=== PATIENT | female | born 1965 | race Caucasian/White ===

== ENCOUNTER 2020-03-22 12:17 | Emergency (ER) | payer OTHER, SELFPAY ==
--- NOTE | 2020-03-22 12:18 | XR_ITS ---
WS: [id number] Portable AP upright chest, 03/22/2020 Clinical Data: cp Comparison: PA and lateral chest, 10/02/2009. Findings: No nodules, masses or effusions are seen. The heart is normal. The pulmonary vascularity is not increased. No pneumonia or pneumothorax is seen. XR/XR chest 1V portable [id number] Impression: Negative chest.
[2020-03-22 12:23] VITALS: BP 183/78; PULSE 73; RESP 18; O2SAT 100; BMI 57.9
--- NOTE | 2020-03-22 12:37 | ED_ITS ---
HPI - Extremity Problem General: Chief complaint: Extremity Problem,Nontraumatic Stated complaint: chest discomfort Time Seen by Provider: 03/22/20 12:25 Source: patient Mode of arrival: ambulatory Limitations: no limitations History of Present Illness: HPI Narrative: Noticed left shoulder pain earlier today that radiated to her back. She has been having intermittent left shoulder pain for a few weeks now but this morning when the pain radiated to her back she decided to come to the emergency department for evaluation. Her father has a history of MIs. Complaint: extremity pain Onset (ago): hour(s) (3) Pain Consistency: constant Location: left and upper extremity Severity scale (1-10): 6 Quality: sharp Radiation: other (back) Relieving factors: nothing Exacerbating factors: range of motion Associated symptoms: Deny chest pain, fever(s), myalgias, rash or short of breath Review of Systems General: Reports: 10 or more systems reviewed and unremarkable except in HPI and below Const: Denies: fever(s) Eyes: Denies: change in vision or blurry vision ENMT: Denies: throat pain, enlarged tonsils, odynophagia, hoarseness, mouth pain or swelling of lips/tongue Card: Denies: chest pain Resp: Denies: dyspnea, productive cough or non-productive cough GI: Denies: abdominal pain, nausea or vomiting : Denies: flank pain, difficulty voiding, dysuria, urinary frequency, urinary urgency or urinary hesitancy Musc: Denies: neck pain, back pain or extremity swelling Skin/Breast: Denies: rash Neuro: Denies: headache(s), numbness in extremities or weakness in extremities Endo: Denies: polyuria, polydipsia or tired all the time Physical Exam Const: COMMON NORMALS: no acute distress, patient oriented x3, no limitations, healthy appearing, alert and well nourished NUTRITIONAL APPEARANCE: obese HENMT: COMMON NORMALS: normocephalic, atraumatic and moist oral mucous membranes HEAD & SCALP: normocephalic and atraumatic Neck/C-Spine: COMMON NORMALS: no meningeal signs and no JVD Resp: COMMON NORMALS: normal respiratory effort, No retractions, No use of accessory muscles, clear to auscultation bilaterally and percussion normal AUSCULTATION: clear to auscultation bilaterally PERCUSSION: percussion normal Cardio: COMMON NORMALS: no JVD, regular rate, regular rhythm, S1 normal heart sound present, S2 normal heart sound present, No gallops present (Cardio), No clicks present (Cardio), No murmurs present (Cardio), No rub (Cardio) and Peripheral pulses 2+ throughout RATE: regular rate RHYTHM: regular rhythm HEART SOUNDS: S1 normal heart sound present and S2 normal heart sound present PERIPHERAL PULSES: Peripheral pulses 2+ throughout GI: COMMON NORMALS: Normal to inspection, nondistended, normoactive bowel sounds present, Soft to palpation, non-tender, No hepatosplenomegaly present, no masses and no bruits PALPATION: Yes Soft to palpation and Yes No hepatosplenomegaly present Extremity: COMMON NORMALS: normal to inspection, full ROM, capillary refill normal, no calf tenderness and no pedal edema LEFT UPPER EXTREMITY: Yes shoulder joint Left shoulder joint: Yes palpation (Tenderness in the posterior shoulder along the infraspinatus muscle) and Yes ROM (Full range of motion) Neuro: COMMON NORMALS: patient oriented x3 SENSORIUM/ORIENTATION: Yes alert MENINGEAL SIGNS: Yes no meningeal signs Course Reevaluation(s): Reevaluation #1: Discussed her lab findings with her. Baseline troponin less than 6. Heart score shows she has a low risk of an adv erse cardiac event in the next 6 weeks so she will be discharged home to follow- up with her primary care provider I think her pain may be more musculoskeletal than cardiac. She voiced understanding and is in agreement with the plan. Time: 14:30 Vital Signs: Vital signs: Vital Signs Pulse Rate 79 03/22/20 13:58 Respiratory Rate 12 03/22/20 13:58 Blood Pressure 129/78 03/22/20 13:58 Pulse Oximetry 99 03/22/20 13:58 MDM - Extremity (Nontraumatic) MDM Narrative: Medical decision making narrative: 54-year-old female patient who presents with left shoulder pain that radiated to her back today. She was worried about a cardiac cause of the pain so she came in for evaluation. She has also had this pain intermittently for a few weeks. Evaluation in the ED was unremarkable including a baseline troponin of less than 6. Heart score is 3 (1 for age and 2 for risk factors). She is discharged home with no new orders but she did have some tenderness on exam of her shoulder with pain when she reaches behind her back. She had a fall into a door a few months ago and has had left shoulder pain since then that has progressively worsened. She did not remember that until I started asking her questions. I do think she may have some rotator cuff issues and she is advised to follow-up with her primary care provider for an MRI. Since her evaluation here was unremarkable and she has a low heart score she is discharged home with no new orders. Medical Records: Attestation: I reviewed the patient's medical records. Lab Data: Attestation: I reviewed the patient's lab results. Labs: Lab Results 03/22/20 03/22/20 03/22/20 Range/Units 12:37 12:37 12:37 WBC 6.8 (4.0-10.0) 10^3/ uL RBC 4.50 (4.1-5.3) 10^6/u L Hgb 13.3 (11.5-15.3) g/dL Hct 42.1 (37.0-47.0) % MCV 93.6 (81-99) fL MCH 29.6 (28.0-34.0) pg MCHC 31.6 (30.0-36.0) g/dL RDW 12.9 (12.1-15.1) % Plt Count 173 (130-400) 10^3/c mm MPV 9.6 (7.4-10.4) fL Neut % (Auto) 57.9 % Lymph % (Auto) 25.1 % [place] % (Auto) 8.9 % Eos % (Auto) 7.4 % Baso % (Auto) 0.4 % Neut # (Auto) 3.91 (1.8-7.7) 10^3/u L Lymph # (Auto) 1.7 (0.8-4.8) 10^3/u L [place] # (Auto) 0.6 (0.2-0.9) 10^3/u L Eos # (Auto) 0.5 (0.0-0.8) 10^3/u L Baso # (Auto) 0.0 (0.0-0.1) 10^3/u L Nucleated RBC % (a uto) 0 % Nucleated RBCs # 0.0 /100WBC Sodium 140 (136-145) mmol/L Potassium 4.5 (3.5-5.1) mmol/L Chloride 105 (98-107) mmol/L Carbon Dioxide 28 (22-29) mmol/L Anion Gap 11.5 (5-19) BUN 18 (6-20) mg/dL Creatinine 0.7 (0.5-0.9) mg/dL GFR Calculation 87.2 L (90-130) mL/min Glucose 110 (65-115) mg/dL Calculated Osmolal ity 287 (285-295) mOsm/k g Calcium 9.2 (8.5-10.5) mg/dL Total Bilirubin 0.5 (0.15-1.2) mg/dL AST 22 (0-32) U/L ALT 25 (0-33) U/L Alkaline Phosphata se 77 (35-105) IU/L Troponin T Baselin e 6 (0-10) ng/L Total Protein 7.2 (6.6-8.7) g/dL Albumin 4.1 (3.5-5.2) g/dL Globulin 3.1 (1.3-4.6) g/dL Lipase 28 (13-60) U/L Imaging Data^: CXR: Radiologist's impression: [place] [address] XRay Report Signed Patient: Marylou Mccormack #: [id number] : 1965Acct#:[id number] Age/Sex: 54 / FADM Date: 03/22/20 [facility] Attending Dr: Ordering Provider/Ordering MD: Lucinda Silvestre MD Date of Service: 03/22/20 Procedure(s): XR chest 1V portable [id number] Accession Number(s): [id number] Report Number: [id number] WS: [id number] Portable AP upright chest, 03/22/2020 Clinical Data: cp Comparison: PA and lateral chest, 10/02/2009. Findings: No nodules, masses or effusions are seen. The heart is normal. The pulmonary vascularity is not increased. No pneumonia or pneumothorax is seen. XR/XR chest 1V portable [id number] Impression: Negative chest. Dictated By:Saadia Diaz MD Signed By:Saadia Diaz MDSigned Date/Time:03/22/202 DD/ 1311 EKG Data^: EKG 1: Attestation: I personally reviewed and interpreted this EKG as follows: EKG interpretation date: 03/22/20 EKG interpretation time: 12:25 Prior EKG tracings: not available for review Interpretation: Normal sinus rhythm. Heart rate 73 bpm. Normal axis. No ST changes. No STEMI EKG 2: Attestation: I personally reviewed and interpreted this EKG as follows: EKG interpretation date: 03/22/20 EKG interpretation time: 14:19 Prior EKG tracings: available for review Interpretation: Normal sinus rhythm. Heart rate [address] changes. Normal axis. Unchanged from earlier. Discharge Plan Discharge Patient Disposition: Home Clinical Impression: Acute pain of left shoulder Condition: Stable Prescriptions: Continued meloxicam 15 mg tablet 15 mg PO DAILY RF: 0 levothyroxine 25 mcg tablet 25 mcg PO DAILY RF: 0 Calcium 500 500 mg calcium (1,250 mg) Tablet 500 mg PO DAILY RF: 0 pantoprazole 40 mg tablet,delayed release (DR/EC) 40 mg PO DAILY RF: 0 nortriptyline 10 mg capsule 10 mg PO BEDTIME RF: 0 montelukast 10 mg tablet 10 mg PO DAILY RF: 0 zinc 50 mg Tablet 50 mg PO DAILY RF: 0 magnesium 250 mg Tablet 250 mg PO DAILY RF: 0 epinephrine 0.3 mg/0.3 mL auto-injector 0.3 mg IM PRN PRN (Reason: Allergic Reaction) RF: 0 timolol maleate 0.5 % drops 1 drp ophthalmic (eye) BID RF: 0 Claritin 10 mg Tablet 10 mg PO DAILY RF: 0 biotin 1 mg Tablet 1 mg PO DAILY RF: 0 olopatadine 0.6 % spray,non-aerosol 0.6 % INTRANASAL BID RF: 0 Lumigan 0.01 % drops 1 drp ophthalmic (eye) BEDTIME RF: 0 Discharge Orders: Discharge Order (Routine); Ordered 03/22/20 Ordered By: Angel Fields Referrals: Patti Hurst MD [Primary Care Provider] - 1-3 days Discharge Diet: Usual diet Discharge Activity: Increase activity as tolerated Patient Instructions: Shoulder Sprain (ED) Activity Restrictions/Additional Instructions: Return for any new or worsening symptoms. Follow-up with your primary care provider within 2 days for further evaluation and management. You might need an MRI of your shoulder for further evaluation of your rotator cuff muscles. Discharge Date/Time: 03/22/20 14:53 Coding Level of Care Code ED Food And Nutrition Teacher for Susu Fwd Exam Detailed
[2020-03-22 12:43] LABS: Basophils % 0.4 %; Eosinophils # 0.5 10^3/uL (0.0-0.8); Eosinophils % 7.4 %; Hematocrit 42.1 % (37.0-47.0); Hemoglobin 13.3 g/dL (11.5-15.3); Lymphocytes # 1.7 10^3/uL (0.8-4.8); Lymphocytes % 25.1 %; Mean Corpuscular HGB Conc 31.6 g/dL (30.0-36.0); Mean Corpuscular Hemoglobin 29.6 pg (28.0-34.0); Mean Corpuscular Volume 93.6 fL (81-99); Mean Platelet Volume 9.6 fL (7.4-10.4); Monocytes # 0.6 10^3/uL (0.2-0.9); Monocytes % 8.9 %; Neutrophils # 3.91 10^3/uL (1.8-7.7); Neutrophils % 57.9 %; Nucleated Red Blood Cells % 0 %; Platelet Count 173 10^3/cmm (130-400); Red Cell Distribution Width 12.9 % (12.1-15.1); White Blood Count 6.8 10^3/uL (4.0-10.0)
[2020-03-22 12:59] VITALS: BP 159/65; PULSE 69; PULSE 71; RESP 16; O2SAT 100
[2020-03-22 13:05] LABS: Alanine Aminotransferase 25 U/L (0-33); Albumin Level 4.1 g/dL (3.5-5.2); Alkaline Phosphatase 77 IU/L (35-105); Anion Gap 11.5 (5-19); Aspartate Amino Transferase 22 U/L (0-32); Blood Urea Nitrogen 18 mg/dL (6-20); Calcium 9.2 mg/dL (8.5-10.5); Carbon Dioxide 28 mmol/L (22-29); Chloride 105 mmol/L (98-107); Globulin 3.1 g/dL (1.3-4.6); Glomerular Filtration Rate 87.2 mL/min (90-130); Glucose 110 mg/dL (65-115); Lipase 28 U/L (13-60); Osmolality Calculated 287 mOsm/kg (285-295); Potassium 4.5 mmol/L (3.5-5.1); Sodium 140 mmol/L (136-145); Total Bilirubin 0.5 mg/dL (0.15-1.2); Total Protein 7.2 g/dL (6.6-8.7)
[2020-03-22 13:06] LABS: Troponin(5th) Baseline 6 ng/L (0-10)
[2020-03-22 13:58] VITALS: BP 129/78; PULSE 79; RESP 12; O2SAT 99
--- NOTE | 2020-03-22 14:18 | ECG_ITS ---
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 Measurements Intervals [place] Rate: 69 P: -25 [place]: 134 QRS: 11 QRSD: 89 T: 34 QT: 384 QTc: 413 Interpretive Statements SINUS RHYTHM LOW QRS VOLTAGE IN PRECORDIAL LEADS [QRS DEFLECTION < 1.0 mV IN CHEST LEADS] SEPTAL MYOCARDIAL INFARCTION , OF INDETERMINATE AGE [40+ ms Q WAVE IN V1/V2] No previous ECG available for comparison Electronically Signed On 03-22-2020 20:43:44 CDT by Constance Ahumada M.D. [id number]
== END 2020-03-22 14:53 | disposition home or self-care (01) ==
PROVIDERS: Emergency Medicine; Emergency Provider Family Medicine; PCP Family Medicine
DX: M25.512 Pain in left shoulder (principal)
CPT/HCPCS: 12345; 71045; 80053; 83690; 84484; 85025; 93005; 99282; 99284

== ENCOUNTER → 2020-05-03 15:50 | Outpatient (BNVA) | payer OTHER, SELFPAY | PROVIDERS: PCP Family Medicine; Referring Provider Family Medicine; Visit Provider Dermatology | DX: L70.9 Acne, unspecified (principal); L82.1 Other seborrheic keratosis; D18.01 Hemangioma of skin and subcutaneous tissue; L72.0 Epidermal cyst | CPT/HCPCS: 99203; 99204 ==

== ENCOUNTER 2020-07-16 11:36 | Outpatient (CLI) | payer OTHER, SELFPAY ==
--- NOTE | 2020-07-16 11:40 | MM_ITS ---
WS: [id number] SCREENING DIGITAL MAMMOGRAM WITH CAD HISTORY: SCREENING COMPARISON: 05/18/2019, 07/14/2018 Bilateral CC and MLO views submitted. Computer aided detection analyzed. Breast composition: The breasts are almost entirely fatty. No suspicious masses, microcalcifications or architectural distortion. Benign intramammary lymph nodes. MM/[id number] IMPRESSION: BI-RADS: 2-Benign FOLLOW UP: 1 Year Follow-up
== END 2020-07-16 11:37 | disposition home or self-care (01) ==
LOC: RADSHAW 11:39
PROVIDERS: PCP Family Medicine; Visit Provider Family Medicine
DX: Z12.31 Encounter for screening mammogram for malignant neoplasm of breast (principal)
CPT/HCPCS: 77067

== ENCOUNTER → 2021-02-26 12:52 | Outpatient (BNVA) | payer BC, SELFPAY | PROVIDERS: PCP Family Medicine; Visit Provider Nurse Practitioner Family | DX: Z20.822 Contact with and (suspected) exposure to COVID-19 (principal); J06.9 Acute upper respiratory infection, unspecified | CPT/HCPCS: 87635 ==

== ENCOUNTER → 2021-03-13 08:21 | Outpatient (BNVA) | payer BC, SELFPAY | PROVIDERS: PCP Family Medicine; Visit Provider Nurse Practitioner Family | DX: Z20.822 Contact with and (suspected) exposure to COVID-19 (principal) | CPT/HCPCS: 87635 ==

== ENCOUNTER 2021-07-10 09:03 | Outpatient (CLI) | payer BC, SELFPAY ==
--- NOTE | 2021-07-10 09:09 | MM_ITS ---
WS: [id number] BILATERAL SCREENING DIGITAL MAMMOGRAM WITH CAD HISTORY: SCREENING COMPARISON: 07/16/2020 and 07/14/2018 Bilateral CC and MLO views submitted. Computer aided detection analyzed. Breast composition: There are scattered areas of fibroglandular density. No suspicious masses, microc alcifications or architectural distortion. Benign calcifications and lymph nodes within each breast. MM/[place] [id number] IMPRESSION: BI-RADS: 2-Benign FOLLOW UP: 1 Year Follow-up
== END 2021-07-10 09:04 | disposition home or self-care (01) ==
LOC: RADSHAW 09:07
PROVIDERS: PCP Family Medicine; Visit Provider Family Medicine
DX: Z12.31 Encounter for screening mammogram for malignant neoplasm of breast (principal)
CPT/HCPCS: 77067

== ENCOUNTER → 2021-09-27 13:28 | Outpatient (BNVA) | payer BC, SELFPAY | PROVIDERS: PCP Family Medicine; Visit Provider Surgery | DX: Z20.822 Contact with and (suspected) exposure to COVID-19 (principal) | CPT/HCPCS: 87635 ==

== ENCOUNTER 2021-10-02 08:42 | Day surgery (SDC) | payer BC, SELFPAY ==
[2021-09-30 12:53] VITALS: BMI 60.0
--- NOTE | 2021-10-02 09:07 | ANES.PREANE2 ---
Pre-Anesthetic Assessment Height/Weight: Height 1.63 m Weight 158.757 kg Preop Diagnosis: diagnostic Operation Date: 10/02/21 10:30 Proposed Procedures s Colonoscopy 92690 Z86.010 K64.9(Not Applicable) - Tin Carpenter MD p EGD possible balloon Dilation(Not Applicable) - Tin Carpenter MD Familial anesthetic complications: None Was Beta Oscar taken within 24 hours: N/A Was Clonidine taken within 24 hours: N/A Last intake: > 8 hrs Social No alcohol and No tobacco Airway Mallampati: Class II Dentition: other (missing 1 tooth) Pulmonary reactive airway - but no asthma diagnosis - took her inhaler this morning GI Gastroesophageal Reflux Disease Metabolic Morbid Obesity and Thyroid Disease Anesthetic Plan ASA status: 3 Risk of > 500 ml blood loss (7ml/kg in children): No Other Pertinent Information glaucoma Medications/Allergies Home Medications Medication Instructions Recorded Confirmed Last Taken Type bimatoprost 0.01 % eye drops 1 drp OPHTHALMIC (EYE) BEDTIME 03/22/20 09/30/21 03/21/20 History (Lumigan) biotin 1 mg tablet 1 mg PO DAILY 03/22/20 09/30/21 03/22/20 History calcium carbonate 500 mg calcium 500 mg PO DAILY 03/22/20 09/30/21 03/22/20 History (1,250 mg) tablet (Calcium 500) levothyroxine 25 mcg tablet 25 mcg PO DAILY 03/22/20 09/30/21 03/22/20 History loratadine 10 mg tablet (Claritin) 10 mg PO DAILY 03/22/20 09/30/21 03/22/20 History magnesium 250 mg tablet 250 mg PO DAILY 03/22/20 09/30/21 03/22/20 History meloxicam 15 mg tablet 15 mg PO DAILY 03/22/20 09/30/21 03/22/20 History montelukast 10 mg tablet 10 mg PO DAILY 03/22/20 09/30/21 03/21/20 History nortriptyline 10 mg capsule 10 mg PO BEDTIME 03/22/20 09/30/21 03/21/20 History olopatadine 0.6 % nasal spray 0.6 % INTRANASAL BID 03/22/20 09/30/21 03/22/20 History pantoprazole 40 mg tablet,delayed 40 mg PO DAILY 08/09/30/21 03/22/20 History release timolol maleate 0.5 % eye drops 1 drp OPHTHALMIC (EYE) BID 03/22/20 09/30/21 03/22/20 History zinc 50 mg tablet 50 mg PO DAILY 03/22/20 09/30/21 03/22/20 History budesonide 0.5 mg/2 mL suspension 0.5 mg INHALATION DAILY 03/12/21 09/30/21 Unknown History for nebulization fluticasone propionate 110 2 puff INHALATION BID PRN g 03/12/21 09/30/21 Unknown History mcg/actuation HFA aerosol inhaler (Flovent HFA) glucosamine sulfate 500 mg tablet 500 mg PO DAILY 09/03/21 09/30/21 Unknown History (Glucosamine) Allergies Allergy/AdvReac Type Severity Reaction Status Date / Time codeine Allergy ADR-Irritab Verified 09/03/21 08:28 le levofloxacin [From Levaquin] Allergy ADR-Muscle Verified 09/03/21 08:28 Pain PFSH Anesthesia Medical History (Updated 09/03/21 @ 08:47 by Tin Carpenter MD) Arthritis GERD (gastroesophageal reflux disease) Glaucoma History of colon polyps Hypothyroidism Surgical History (Updated 09/03/21 @ 08:45 by Tin Carpenter MD) H/O esophagogastroduodenoscopy H/O knee surgery Left H/O sinus surgery radical turbinectomy History of carpal tunnel release Left History of colonoscopy History of eye surgery History of tonsillectomy Family History Other CAD (coronary artery disease) CLL (chronic lymphocytic leukemia) Cancer Diabetes Social History (Updated 03/12/21 @ 10:57 by Elvi Alexander NP) Smoking and tobacco status: never smoked Alcohol intake: never History of recent travel: No Data Anesthesia Cardiac Studies: No Data to Display
[2021-10-02 09:40] VITALS: BP 179/90; PULSE 81; RESP 18; TEMP 36.3
[2021-10-02] MEDS: sodium chloride 0.9% 1,000 ML 30 ML IV (09:47)
--- NOTE | 2021-10-02 10:06 | P.HP_ITS ---
Same Day Surgery H&P Indication for Procedure/HPI DATE OF PROCEDURE: October 02, 2021 CHIEF COMPLAINT/INDICATIONFOR SURGICAL PROCEDURE: screening PREOP DIAGNOSIS: diagnostic PLANNED PROCEDURE: Operation Date: 10/02/21 10:30 Proposed Procedures s Colonoscopy 85787 Z86.010 K64.9(Not Applicable) - Tin Carpenter MD p EGD possible balloon Dilation(Not Applicable) - Tin Carpenter MD Medications/Allergies* Home Medications Medication Instructions Recorded Confirmed Type bimatoprost 0.01 % eye drops 1 drp OPHTHALMIC (EYE) BEDTIME 03/22/20 09/30/21 History (Lumigan) biotin 1 mg tablet 1 mg PO DAILY 03/22/20 09/30/21 History calcium carbonate 500 mg calcium 500 mg PO DAILY 03/22/20 09/30/21 History (1,250 mg) tablet (Calcium 500) levothyroxine 25 mcg tablet 25 mcg PO DAILY 03/22/20 09/30/21 History loratadine 10 mg tablet (Claritin) 10 mg PO DAILY 03/22/20 09/30/21 History magnesium 250 mg tablet 250 mg PO DAILY 03/22/20 09/30/21 History meloxicam 15 mg tablet 15 mg PO DAILY 03/22/20 09/30/21 History montelukast 10 mg tablet 10 mg PO DAILY 03/22/20 09/30/21 History nortriptyline 10 mg capsule 10 mg PO BEDTIME 03/22/20 09/30/21 History olopatadine 0.6 % nasal spray 0.6 % INTRANASAL BID 03/22/20 09/30/21 History pantoprazole 40 mg tablet,delayed 40 mg PO DAILY 03/22/20 09/30/21 History release timolol maleate 0.5 % eye drops 1 drp OPHTHALMIC (EYE) BID 03/22/20 09/30/21 History zinc 50 mg tablet 50 mg PO DAILY 03/22/20 09/30/21 History budesonide 0.5 mg/2 mL suspension 0.5 mg IRRIGATION DAILY 03/12/21 10/02/21 History for nebulization fluticasone propionate 110 2 puff INHALATION BID PRN g 03/12/21 09/30/21 Hi story mcg/actuation HFA aerosol inhaler (Flovent HFA) glucosamine sulfate 500 mg tablet 500 mg PO DAILY 09/03/21 09/30/21 History (Glucosamine) Allergies/Adverse Reactions Allergy/AdvReac Type Severity Reaction Status Date / Time codeine Allergy ADR-Irritab Verified 09/03/21 08:28 le levofloxacin [From Levaquin] Allergy ADR-Muscle Verified 09/03/21 08:28 Pain Current Medications: Generic Name Dose Route Start Last Admin Trade Name Freq PRN Reason Stop Dose Admin Sodium Chloride 1,000 mls @ 30 mls/hr 10/02/21 09:00 10/02/21 09:47 Sodium Chloride 0.9% IV 10/03/21 08:59 30 mls/hr .Q24H AIDEN Administration Pertinent History/Comorbid Conditions* Medical History (Updated 09/03/21 @ 08:47 by Tin Carpenter MD) Arthritis GERD (gastroesophageal reflux disease) Glaucoma History of colon polyps Hypothyroidism Surgical History (Updated 09/03/21 @ 08:45 by Tin Carpenter MD) H/O esophagogastroduodenoscopy H/O knee surgery Left H/O sinus surgery radical turbinectomy History of carpal tunnel release Left History of colonoscopy History of eye surgery History of tonsillectomy Family History (Updated 05/03/20 @ 16:15 by Claudia Edgar LPN) Diabetes CAD (coronary artery disease) CLL (chronic lymphocytic leukemia) Cancer Social History Smoking and tobacco status: never smoked Alcohol intake: never History of recent travel: No Pertinent Exam Findings alert, oriented x 3 and regular rate & rhythm Recommendations Surgery/Procedure today Coding Level of Care Code Acute 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
[2021-10-02 10:57] VITALS: BP 170/100; PULSE 82; RESP 18; TEMP 36.8; O2SAT 97
[2021-10-02 11:10] VITALS: BP 158/63; PULSE 77; RESP 18; TEMP 36.7; O2SAT 97
--- NOTE | 2021-10-02 13:00 | ANE.PACU2 ---
Inpatient post-anesthesia follow up: Airway intact: Yes Vital signs: Temperature 98.1 F Pulse Rate 77 Respiratory Rate 18 Blood Pressure 158/63 Pulse Oximetry 97 Oxygen Delivery Me thod Room Air Oxygen Flow Rate Fraction of Inspir ed Oxygen Hydration adequate: Yes Nausea and vomiting: No Pain level: 2 Mental status: Baseline
== END 2021-10-02 11:24 | disposition home or self-care (01) ==
PROVIDERS: PCP Family Medicine; Visit Provider Surgery
PROC: 0DJD8ZZ Inspection of Lower Intestinal Tract, Via Natural or Artificial Opening Endoscopic (ICD-10-PCS; CPT 45378; principal; 2021-10-02 10:30)
DX: Z12.11 Encounter for screening for malignant neoplasm of colon (principal); Z86.010 Personal history of colon polyps; K21.9 Gastro-esophageal reflux disease without esophagitis; K64.8 Other hemorrhoids; D12.2 Benign neoplasm of ascending colon; E03.9 Hypothyroidism, unspecified; M19.90 Unspecified osteoarthritis, unspecified site; E66.01 Morbid (severe) obesity due to excess calories; Z68.44 Body mass index [BMI] 60.0-69.9, adult; Z82.49 Family history of ischemic heart disease and other diseases of the circulatory system; Z83.3 Family history of diabetes mellitus
CPT/HCPCS: 43239; 45380; 88305; J2704; J7030

== ENCOUNTER 2022-05-05 09:51 | Outpatient (CLI) | payer BC, SELFPAY ==
--- NOTE | 2022-05-05 | ECG_ITS ---
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 Interpretive Statements NAME OF STUDY: EXERCISE SESTAMIBI STRESS TEST INDICATION: [Chest Pressure; Palpitations] EXERCISE DATA: The patient was exercised by Félix protocol. Baseline heart rate was 71 beats per minute. Baseline blood pressure was 156/94 millimeters of mercury. Target heart rate was 139 beats per minute. Maximum heart rate achieved was 147, which was 105% of the target heart rate. Maximum blood pressure was 219/101 millimeters of mercury. Total exercise time was 3 minutes 31 seconds. Maximum METs achieved was 4.9.The reason for ending the test was maximal effot achieved. ELECTROCARDIOGRAM: BASELINE: Showed sinus rhythm, normal axis, no significant ST-T changes at the baseline noted. [] EXERCISE: At the peak exercise level, [] No significant ST-T changes suggestive of ischemia noted. [] RECOVERY: During the recovery period, heart rate dropped appropriately. No significant ST-T changes in the recovery suggestive of ischemia noted. [] CONCLUSION: 1. Exercise capacity poor 2. Heart rate response was appropriate 3. Blood pressure response was hypertensive 4. Symptoms not suggestive of ischemia. 5. Electrocardiogram portion of the stress test was not suggestive of ischemia. 6. Nuclear scan will be documented separately. Electronically Signed On 05-19-2022 9:53:32 CDT by Roderick Campos M.D. [id number]
[2022-05-05 10:44] VITALS: BMI 60.0
--- NOTE | 2022-05-05 10:46 | NMCV_ITS ---
NM daniella perf SPECT r/s* [id number] Marylou Mccormack Age: 56 Gender: F : 1965 Exam Date: 05/05/2022 11:07 Ordering Phys: Patti Hurst MD Technologist: PARI Baig Exam Location: [facility] Indications: CHEST PAIN STRESS TEST Please see separate stress test report in [facility] for full findings IMAGE PROTOCOL Rest/Stress 1 Exercise Day Radiopharmaceutical Dose (mCi) Administration Site Administered by Rest: Tc-99m 10.7 IV PARI Jordan Sestamibi Stress:Tc-99m 32.9 IV PARI Jordan Sestamibi Rest: 05-May-2022 60 Discovery 630 Stress: 05-May-2022 30 Discovery 630 Radiopharmaceutical was injected at 85 % maximum heart rate. Images obtained in supine and prone position. SPECT RESULTS Technical Quality: Excellent Raw Data Analysis: Breast attenuation Image Corrections: No attenuation or motion correction applied Summed Stress Score: 0 Summed Rest Score: 1 Summed Difference Score: 0 PERFUSION FINDINGS SPECT images demonstrate homogeneous tracer distribution throughout the myocardium. FUNCTIONAL RESULTS (calculated via Gated SPECT) Stress Image LV EF (%): 78 Stress EDV (mL):76 TID: 0.77 Stress ESV (mL):17 FUNCTIONAL FINDINGS: There is normal left ventricular systolic function. IMPRESSIONS 1. Normal myocardial perfusion imaging with no evidence of ischemia. 2. LV systolic function is normal Roderick Campos MD (Electronically Signed) Final Date: 05 May 2022 13:50 S
[2022-05-05 12:09] VITALS: BP 145/81; PULSE 89
== END 2022-05-05 09:52 | disposition home or self-care (01) ==
LOC: CDL 09:54
PROVIDERS: PCP Family Medicine; Visit Provider Family Medicine
DX: R07.89 Other chest pain (principal)
CPT/HCPCS: 78452; 93017; A9500

== ENCOUNTER 2022-05-23 07:20 | Outpatient (CLI) | payer BC, SELFPAY ==
--- NOTE | 2022-05-23 07:35 | MM_ITS ---
WS: [id number] BILATERAL SCREENING DIGITAL TOMOSYNTHESIS MAMMOGRAM WITH CAD HISTORY: SCREEN COMPARISON: 07/10/2021 and 07/16/2020 Bilateral CC and MLO views with tomosynthesis and synthetic mammography submitted. Computer aided det ection analyzed. Breast composition: There are scattered areas of fibroglandular density. No suspicious masses, microc alcifications or architectural distortion. Scattered calcifications. No mass. MM/[place] [id number] IMPRESSION: BI-RADS: 2-Benign FOLLOW UP: 1 Year Follow-up
== END 2022-05-23 07:21 | disposition home or self-care (01) ==
LOC: RAD 07:21
PROVIDERS: PCP Family Medicine; Visit Provider Family Medicine
DX: Z12.31 Encounter for screening mammogram for malignant neoplasm of breast (principal)
CPT/HCPCS: 77063; 77067

== ENCOUNTER 2022-10-09 08:02 | Outpatient (CLI) | payer BC, SELFPAY ==
--- NOTE | 2022-10-09 | CT_ITS ---
WS: [id number] CT TEMPORAL BONES TECHNIQUE: Noncontrast CT of the temporal bones with coronal and sagittal reformatted images. CLINICAL INFORMATION: OTALGIA COMPARISON: None. DLP: 423.[address] scans at [facility] use at least one of these dose optimization techniques: automated e xposure control; mA and/or kV adjustment per patient size (includes targeted exams where dose is matc hed to clinical indication); or iterative reconstruction. FINDINGS: Mastoid air cells are well aerated bilaterally. Normal posterior nasopharynx and parapharyn geal fat. Partial opacification of the RIGHT greater than LEFT frontal sinus and frontal ethmoidal re cesses. Partial opacification ethmoid air cells. RIGHT: Normal external auditory canal. Ossicles are normal in appearance. Middle ear is well aerated. Normal tegmen tympani. Semicircular canals and cochlea are normal in appearance. Prussak's space is normal. Normal inner ear structures. Normal vestibular aqueduct. Facial nerve recess is normal. LEFT: Normal external auditory canal. Ossicles are normal in appearance. Middle ear is well aerated. Normal tegmen tympani. Semicircular canals and cochlea are normal in appearance. Prussak's space is normal. Normal inner ear structures. Normal vestibular aqueduct. Facial nerve recess is normal. CT/CT temporal bone wo con* [id number] IMPRESSION: 1. Mastoid air cells well aerated bilaterally. 2. Normal ossicles bilaterally structures. 3. No evidence of aberrant LEFT ICA. 4. Partially visualized paranasal sinuses demonstrate partial opacification et hmoid air cells with opacification the RIGHT greater than LEFT frontal ethmoida l recesses and RIGHT greater than LEFT frontal sinus and nasal thickening.
== END 2022-10-09 08:03 | disposition home or self-care (01) ==
LOC: RAD 08:04
PROVIDERS: PCP Family Medicine; Visit Provider Specialist
DX: H92.09 Otalgia, unspecified ear (principal)
CPT/HCPCS: 70480

== ENCOUNTER 2023-02-05 19:34 | Emergency (ER) | payer BC, SELFPAY ==
--- NOTE | 2023-02-05 19:35 | XRR_ITS ---
PROCEDURE INFORMATION: Exam: XR Chest Exam date and time: 02/05/2023 7:43 PM Age: 57 years old Clinical indication: Other: Palpitations TECHNIQUE: Imaging protocol: Radiologic exam of the chest. Views: 1 view. COMPARISON: CR XR chest 1V portable [id number] 03/22/2020 12:36 PM FINDINGS: Lungs: Unremarkable. No consolidation. Pleural spaces: Unremarkable. No pleural effusion. No pneumothorax. Heart/Mediastinum: Unremarkable. No cardiomegaly. Bones/joints: Unremarkable. XR/XR chest 1V portable [id number] IMPRESSION: No acute findings.
--- NOTE | 2023-02-05 19:36 | ECG_ITS ---
[facility] Test Date: 2023-02-05 Pat Name: Marylou Mccormack Department: Room: Gender: Female Crnp: : 1965 Requested By: Lucinda Silvestre Order Number: [id number] Lucille MD: Constance Ahumada M.D. Measurements Intervals Mcnary Rate: 135 P: 47 VA: 166 QRS: 16 QRSD: 81 T: 47 QT: 291 QTc: 437 Interpretive Statements SINUS TACHYCARDIA WITH FREQUENT SUPRAVENTRICULAR PREMATURE COMPLEXES LOW QRS VOLTAGE IN PRECORDIAL LEADS [QRS DEFLECTION < 1.0 mV IN CHEST LEADS] POSSIBLE ANTERIOR MYOCARDIAL INFARCTION , PROBABLY OLD [30 ms Q WAVE IN V3/V4, OR R < 0.2 mV IN V4] ABNORMAL RHYTHM ECG Compared to ECG 03/22/2020 14:19:39 Sinus rhythm no longer present Myocardial infarct finding still present Electronically Signed On 02-06-2023 11:31:45 CDT by Constance Ahumada M.D. [id number]
[2023-02-05 19:38] VITALS: BP 156/74; PULSE 138; RESP 16; O2SAT 98; BMI 58.3
--- NOTE | 2023-02-05 19:46 | W.ED.ARRPALP ---
HPI - Arrhythmia/Palpitations General: Chief Complaint: Arrhythmia/Palpitations Stated Complaint: fast heart rate Time Seen by Provider: 02/05/23 19:35 Source: patient Mode of arrival: ambulatory Limitations: no limitations History of Present Illness: 57-year-old female states she has been having episodes of palpitations the last couple days she states it seems to be associated with eating at times states she is feeling palpitations this evening she is tachycardic here she denies any pain she denies any shortness of breath denies any recent illness or fever no history of A-fib or arrhythmias Associated symptoms: Deny nausea or vomiting Review of Systems Const: Denies: fever(s) or chills Eyes: Denies: eye discomfort ENMT: Denies: throat pain or dental pain Card: Reports: palpitations and irregular heart rhythm; Denies: chest pain Resp: Denies: dyspnea GI: Denies: abdominal pain, nausea, vomiting or diarrhea Musc: Denies: neck pain or back pain Skin/Breast: Denies: rash Neuro: Denies: headache(s) PFSH ED PFSH: Medical History Arthritis GERD (gastroesophageal reflux disease) Glaucoma Helicobacter pylori (H. pylori) Helicobacter pylori gastritis History of colon polyps Hypothyroidism Surgical History H/O esophagogastroduodenoscopy (10/02/21) normal H/O knee surgery Left H/O sinus surgery radical turbinectomy History of carpal tunnel release Left History of colonoscopy History of eye surgery History of tonsillectomy Status post colonoscopy with polypectomy (10/02/21) ascending colon polyp, internal hemorrhoids Family History Other CAD (coronary artery disease) CLL (chronic lymphocytic leukemia) Cancer Diabetes Social History Smoking and tobacco status: never smoked Alcohol intake: never Substance/Drug Use: never Physical Exam Const: COMMON NORMALS: no acute distress and patient oriented x3 HENMT: COMMON NORMALS: normocephalic and atraumatic HEAD & SCALP: normocephalic and atraumatic Eye: COMMON NORMALS: conjunctivae normal CONJUNCTIVA: Yes conjunctivae normal Neck/C-Spine: COMMON NORMALS: full ROM and supple Chest: COMMONS NORMALS: normal inspection of the chest and normal palpation of entire chest wall Resp: COMMON NORMALS: normal respiratory effort, No retractions, No use of accessory muscles and clear to auscultation bilaterally AUSCULTATION: clear to auscultation bilaterally Cardio: COMMON NORMALS: No murmurs present (Cardio) RATE: tachycardic RHYTHM: abnormal rhythm irregularly irregular GI: COMMON NORMALS: Normal to inspection, nondistended, normoactive bowel sounds present, Soft to palpation, non-tender and no masses PALPATION: Yes Soft to palpation Extremity: COMMON NORMALS: normal to inspection and full ROM Neuro: COMMON NORMALS: patient oriented x3, moves all extremities and no focal motor deficits Psych: COMMON NORMALS: mental status grossly normal, Normal thought process present and cooperative THOUGHT PROCESS: Normal thought process present Skin: COMMON NORMALS: no rashes or lesions noted and no wounds GENERAL SKIN EXAM: no rashes or lesions noted Course Vital Signs: Vital signs: Vital Signs Pulse Rate 86 02/05/23 22:16 Respiratory Rate 16 02/05/23 22:16 Blood Pressure 147/94 02/05/23 22:16 Pulse Oximetry 96 02/05/23 22:16 Oxygen Delivery Me thod Room Air 02/05/23 19:38 MDM - Arrhythmia/Palpitations Medical Decision Making Patient presents for tachycardia appears to be a sinus tachycardia no signs of A-fib heart rate here is slowed down blood work is normal including troponin she had no chest pain or shortness of breath we will get her follow-up with cardiology she is return if worsening. Medical Records I reviewed the patient's medical records. Lab Data I reviewed the patient's lab results. 02/05/23 19:50 02/05/23 19:50 Radiology Impressions Chest X-Ray 02/05/23 19:35 IMPRESSION: No acute findings. Laboratory Results WBC 6.7 10^3/uL (4.0-10.0) 02/05/23 19:50 RBC 4.81 10^6/uL (4.1-5.3) 02/05/23 19:50 Hgb 14.2 g/dL (11.5-15.3) 02/05/23 19:50 Hct 44.1 % (37.0-47.0) 02/05/23 19:50 MCV 91.7 fl (81-99) 02/05/23 19:50 MCH 29.5 pg (28.0-34.0) 02/05/23 19:50 MCHC 32.2 g/dL (30.0-36.0) 02/05/23 19:50 RDW 13.2 % (12.1-15.1) 02/05/23 19:50 Plt Count 183 10^3/cmm (130-400) 02/05/23 19:50 MPV 10.0 fL (7.4-10.4) 02/05/23 19:50 Neut % (Auto) 45.3 % 02/05/23 19:50 Lymph % (Auto) 34.1 % 02/05/23 19:50 Cloud % (Auto) 8.9 % 02/05/23 19:50 Eos % (Auto) 10.6 % 02/05/23 19:50 Baso % (Auto) 0.7 % 02/05/23 19:50 Neut # (Auto) 3.04 10^3/uL (1.8-7.7) 02/05/23 19:50 Lymph # (Auto) 2.3 10^3/uL (0.8-4.8) 02/05/23 19:50 Cloud # (Auto) 0.6 10^3/uL (0.2-0.9) 02/05/23 19:50 Eos # (Auto) 0.7 10^3/uL (0.0-0.8) 02/05/23 19:50 Baso # (Auto) 0.1 10^3/uL (0.0-0.1) 02/05/23 19:50 Nucleated RBC % (auto) 0 % 02/05/23 19:50 Nucleated RBCs # 0.0 /100WBC 02/05/23 19:50 Sodium 138 mmol/L (136-145) 02/05/23 19:50 Potassium 4.1 mmol/L (3.5-5.1) 02/05/23 19:50 Chloride 102 mmol/L (98-107) 02/05/23 19:50 Carbon Dioxide 24 mmol/L (22-29) 02/05/23 19:50 Anion Gap 16.1 (5-19) 02/05/23 19:50 BUN 15 mg/dL (6-20) 02/05/23 19:50 Creatinine 0.8 mg/dL (0.5-0.9) 02/05/23 19:50 GFR Calculation 73.9 mL/min (90-130) L 02/05/23 19:50 Glucose 140 mg/dL (65-115) H 02/05/23 19:50 Calculated Osmolality 289 mOsm/kg (285-295) 02/05/23 19:50 Calcium 9.1 mg/dL (8.5-10.5) 02/05/23 19:50 Total Bilirubin 0.6 mg/dL (0.15-1.2) 02/05/23 19:50 AST 19 U/L (0-32) 02/05/23 19:50 ALT 20 U/L (0-33) 02/05/23 19:50 Alkaline Phosphatase 88 U/L (35-105) 02/05/23 19:50 Troponin T Baseline 6 ng/L (0-10) 02/05/23 19:50 Troponin T 120 Minute 6.00 ng/L (0-10) 02/05/23 21:15 Delta Troponin T 0 ABS# (0-10) 02/05/23 21:15 Total Protein 7.2 g/dL (6.6-8.7) 02/05/23 19:50 Albumin 4.3 g/dL (3.5-5.2) 02/05/23 19:50 Globulin 2.9 g/dL (1.3-4.6) 02/05/23 19:50 TSH 3.13 uIU/mL (0.27-4.20) 02/05/23 19:50 EKG Data EKG 1: I personally reviewed and interpreted this EKG as follows: EKG interpretation date: 02/05/23 EKG interpretation time: 19:48 Interpretation: sinus tach hr [address] or t wave abnormalities qrs 81 qtc 370 Other EKG comments: Chest X-Ray 02/05/23 19:35 IMPRESSION: No acute findings. EKG 2: I personally reviewed and interpreted this EKG as follows: EKG interpretation date: 02/05/23 EKG interpretation time: 21:25 Interpretation: nsr hr [address] or t wave abnormality qrs 125 qtc 445 Other EKG comments: Chest X-Ray 02/05/23 19:35 IMPRESSION: No acute findings. Discharge Plan Discharge Patient Disposition: Home Clinical Impression: Tachycardia Condition: Stable Prescriptions: No Action Flovent HFA 110 mcg/actuation HFA aerosol inhaler 2 puff inhalation BID PRN (Reason: wheezing) budesonide 0.5 mg/2 mL suspension for nebulization 0.5 mg irrigation DAILY levothyroxine 25 mcg tablet 25 mcg PO DAILY calcium carbonate [Calcium 500] 500 mg calcium (1,250 mg) Tablet 500 mg PO DAILY nortriptyline 10 mg capsule 10 mg PO BEDTIME montelukast 10 mg tablet 10 mg PO DAILY zinc 50 mg Tablet 50 mg PO DAILY magnesium 250 mg Tablet 250 mg PO DAILY timolol maleate 0.5 % drops 1 drp ophthalmic (eye) BID Rx Instructions: (EACH EYE) loratadine [Claritin] 10 mg Tablet 10 mg PO DAILY biotin 1 mg Tablet 1 mg PO DAILY Lumigan 0.01 % drops 1 drp ophthalmic (eye) BEDTIME pantoprazole 40 mg tablet,delayed release (DR/EC) 80 mg PO DAILY Discharge Orders: Discharge ED (Routine); Ordered 02/05/23 Ordered By: Lucinda Silvestre Referrals: Patti Hurst MD [Primary Care Provider] - Discharge Diet: Advance as tolerated Discharge Activity: Resume usual activity Patient Instructions: Tachycardia (ED) Coding Level of Care Code ED Tugboat Engineer for Susu Cruz
[2023-02-05 20:03] VITALS: BP 161/95; PULSE 136; O2SAT 98
[2023-02-05 20:10] LABS: Basophils # 0.1 10^3/uL (0.0-0.1); Basophils % 0.7 %; Eosinophils # 0.7 10^3/uL (0.0-0.8); Eosinophils % 10.6 %; Hematocrit 44.1 % (37.0-47.0); Hemoglobin 14.2 g/dL (11.5-15.3); Lymphocytes # 2.3 10^3/uL (0.8-4.8); Lymphocytes % 34.1 %; Mean Corpuscular HGB Conc 32.2 g/dL (30.0-36.0); Mean Corpuscular Hemoglobin 29.5 pg (28.0-34.0); Mean Corpuscular Volume 91.7 fl (81-99); Monocytes # 0.6 10^3/uL (0.2-0.9); Monocytes % 8.9 %; Neutrophils # 3.04 10^3/uL (1.8-7.7); Neutrophils % 45.3 %; Nucleated Red Blood Cells % 0 %; Platelet Count 183 10^3/cmm (130-400); Red Blood Count 4.81 10^6/uL (4.1-5.3); Red Cell Distribution Width 13.2 % (12.1-15.1); White Blood Count 6.7 10^3/uL (4.0-10.0)
[2023-02-05] MEDS: labetalol 5 mg/mL SDV 20mL 10 MG IVP (20:10)
[2023-02-05 20:30] VITALS: BP 142/79; PULSE 122; RESP 16; O2SAT 97
[2023-02-05 20:38] LABS: Alanine Aminotransferase 20 U/L (0-33); Albumin Level 4.3 g/dL (3.5-5.2); Alkaline Phosphatase 88 U/L (35-105); Anion Gap 16.1 (5-19); Aspartate Amino Transferase 19 U/L (0-32); Blood Urea Nitrogen 15 mg/dL (6-20); Calcium 9.1 mg/dL (8.5-10.5); Carbon Dioxide 24 mmol/L (22-29); Chloride 102 mmol/L (98-107); Globulin 2.9 g/dL (1.3-4.6); Glomerular Filtration Rate 73.9 mL/min (90-130); Glucose 140 mg/dL (65-115); Osmolality Calculated 289 mOsm/kg (285-295); Potassium 4.1 mmol/L (3.5-5.1); Sodium 138 mmol/L (136-145); Thyroid Stimulating Hormone 3.13 uIU/mL (0.27-4.20); Total Bilirubin 0.6 mg/dL (0.15-1.2); Total Protein 7.2 g/dL (6.6-8.7)
[2023-02-05 21:14] LABS: Troponin(5th) Baseline 6 ng/L (0-10)
--- NOTE | 2023-02-05 21:25 | ECG_ITS ---
[facility] Test Date: 2023-02-05 Pat Name: Marylou Mccormack Department: Room: Gender: Female Certified Personal Trainer: : 1965 Requested By: Lucinda Silvestre Order Number: [id number] Adkins MD: Constance Ahumada M.D. Measurements Intervals [place] Rate: 80 P: 62 ME: 171 QRS: 16 QRSD: 87 T: 35 QT: 355 QTc: 412 Interpretive Statements SINUS RHYTHM LOW QRS VOLTAGE IN PRECORDIAL LEADS [QRS DEFLECTION < 1.0 mV IN CHEST LEADS] Compared to ECG 02/05/2023 19:48:18 Sinus tachycardia no longer present Myocardial infarct finding no longer present Electronically Signed On 02-06-2023 11:31:33 CDT by Constance Ahumada M.D. [id number]
[2023-02-05] MEDS: sodium chloride 0.9% 1,000 ML 999 ML IV (21:26)
[2023-02-05 22:04] LABS: Troponin 5 2HR Delta 0 ABS# (0-10)
[2023-02-05 22:16] VITALS: BP 147/94; PULSE 86; RESP 16; O2SAT 96
[2023-02-05 22:33] LABS: Estmated Average Glucose 126
--- NOTE | 2023-02-06 08:10 | PC.SOCIAL ---
Addendum entered by Soledad Orantes 03/20/23 10:53: Patient did attend appointment Addendum entered by Soledad Orantes 02/18/23 12:25: Patient has a follow up appointment scheduled for Saturday, March 18, 2023 at 12:[address] Campos at [facility]. Original Note: Cardiology Referral Referral sent to Cardiology at this time. Clinic will contact patient with appt date/time.
== END 2023-02-05 22:17 | disposition home or self-care (01) ==
PROVIDERS: Emergency Provider Emergency Medicine; PCP Family Medicine
DX: R00.0 Tachycardia, unspecified (principal)
CPT/HCPCS: 36415; 71045; 80053; 83036; 84443; 84484; 85025; 93005; 99285; J3490; J7030

== ENCOUNTER 2023-03-31 07:26 | Outpatient (CLI) | payer BC, SELFPAY ==
--- NOTE | 2023-03-31 07:33 | CT_ITS ---
WS: [id number] CTA HEAD TECHNIQUE: Contrast enhanced CTA of the head with coronal and sagittal reformatted images and maximum intensity projection (MIP) images. NASCET criteria utilized. CLINICAL INFORMATION: PULSATILE TINNITUS,L EAR COMPARISON: CT temporal bone 10/09/2022 DLP: 1715.[address] scans at [facility] use at least one of these dose optimization techniques: automated e xposure control; mA and/or kV adjustment per patient size (includes targeted exams where dose is matc hed to clinical indication); or iterative reconstruction. FINDINGS: No evidence of intracranial hemorrhage or mass effect. Ventricular system and basilar ciste rns are patent. Normal posterior fossa. Mastoid air cells are well aerated. Normal posterior nasophar ynx. Mucosal thickening with partial opacification on the RIGHT frontal sinus and frontoethmoidal rec ess. Mucosal thickening with fluid in the ethmoid air cells compatible with sinusitis. Mucosal thicke lacy in the LEFT frontoethmoidal recess and LEFT frontal sinus. Evidence of prior paranasal sinus criselda delfino with bilateral maxillary antrostomies and ethmoidectomies. Distal vertebrals are patent. Basilar artery is patent. Normal vascularity to the LAWN SERVICE MANAGER territory bilat erally. Both ICAs are patent at the skull base. Normal vascularity to the AGUSTINA and MCA territories bilaterally . No evidence of proximal flow-limiting stenosis or aneurysm. Patent anterior communicating artery. Normal visualized dural venous sinuses. INTRACRANIAL CTA: IMPRESSION: 1. Normal intracranial CTA. 2. Paranasal sinusitis described above with prior postoperative changes. 3. Mastoid air cells are well aerated. 4. No evidence of aberrant ICA or dehiscent jugular bulb.
[2023-03-31] MEDS: iohexol 350 mg/mL 500 mL Btl (per mL) IV (08:03)
== END 2023-03-31 07:27 | disposition home or self-care (01) ==
PROVIDERS: PCP Family Medicine; Visit Provider Specialist
DX: H93.A2 Pulsatile tinnitus, left ear (principal); J32.9 Chronic sinusitis, unspecified
CPT/HCPCS: 70496; Q9967

== ENCOUNTER 2023-04-27 07:21 | Outpatient (CLI) | payer BC, SELFPAY ==
--- NOTE | 2023-04-27 07:30 | USCV_ITS ---
Marylou Mccormack Age: 57 Gender: F : 1965 Exam Date: 04/27/2023 07:37 Ordering Phys: Roderick Campos M.D ([email or web address]) Technologist: CT Exam Location: [facility] – [place] Indication: BP: 129 / 84 HR: 78 Rhythm: Sinus Technical Quality: Adequate MEASUREMENTS (Male / Female) Normal Values 2D ECHO LV Chamber Size 5.0 cm RV Chamber Size 2.7 cm LVOT Diameter 2.0 cm LV Ejection Fraction MOD 2C 46.7 % LV Ejection Fraction 2C AL 47.2 % LA Diameter 3.9 cm LA Width 3.5 cm LA Height 5.1 cm RA Width 3.1 cm RA Height 4.6 cm Aorta at Sinotubular Diameter 2.5 cm M-MODE Aortic Annulus Diameter 2.7 cm LA Ao Ratio MM 1.4 MV E Point Septal Separation 0.7 cm DOPPLER AV Peak Velocity 146.0 cm/s LVOT Peak Velocity 120.0 cm/s AV Area Cont Eq vti 3.0 cm squared AV Area Cont Eq pk 2.6 cm squared MV Peak Velocity 118.0 cm/s MV Area PHT 4.3 cm squared Mitral E to A Ratio 1.1 MV E' Velocity 50.0 cm/s Mitral E to MV E' Ratio 8.1 Mitral E to LV E' Lateral Ratio 8.3 Mitral E to LV E' Septal Ratio 8.0 TR Peak Velocity 171.7 cm/s TR Peak Gradient 11.8 mmHg TV Peak E Velocity 83.0 cm/s Right Atrial Pressure 3.0 mmHg Pulmonary Artery Systolic Pressu 14.8 mmHg FINDINGS Left Ventricle Left ventricle is normal in size. LV systolic function is normal with EF of 55-60%. No regional wall motion abnormalities are seen. Right Ventricle Normal in size and function Right Atrium Normal in size Left Atrium Normal in size Mitral Valve Structurally normal mitral valve. Trace mitral regurgitation Aortic Valve Structurally normal aortic valve. No significant stenosis or regurgitation. Tricuspid Valve Trace tricuspid regurgitation. Insufficient TR jet to calculate RVSP. Pulmonic Valve Not well visualized Pericardium Normal Aorta Normal in size IVC Appears to be normal CONCLUSIONS LV systolic function is normal with EF of 55 to 60% Trace mitral regurgitation Trace tricuspid regurgitation No comparison studies available Roderick Campos MD (Electronically Signed) Final Date: 02 May 2023 21:06 S
== END 2023-04-27 07:22 | disposition home or self-care (01) ==
PROVIDERS: PCP Family Medicine; Visit Provider Internal Medicine
DX: R07.9 Chest pain, unspecified (principal); R06.02 Shortness of breath
CPT/HCPCS: 93306

== ENCOUNTER 2023-06-19 06:15 | Outpatient (CLI) | payer BC, SELFPAY ==
--- NOTE | 2023-06-19 | US_ITS ---
WS: [id number] RIGHT UPPER QUADRANT ULTRASOUND HISTORY: RUQ PAIN AND LUMP COMPARISON: 03/17/2018 Quality of this examination is suboptimal due to patient's body habitus. Liver: 15.0 cm in length. Poorly visualized in its entirety. Liver is top normal size with hepatic st eatosis. No bile duct dilatation. Portal Vein: Normal hepatopetal flow with monophasic waveform. Gallbladder: Normally distended gallbladder with no stones or wall thickening. CBD: 0.5 cm Pancreas: Portions of the head and tail are obscured. The body is negative. Right kidney: 11.9 cm in length. Poorly visualized. No abnormality. Aorta and IVC: Unremarkable abdominal aorta and IVC. No ascites. IMPRESSION: 1. Technically difficult evaluation of the RIGHT upper quadrant due to body habitus. 2. Normal gallbladder. 3. Hepatic steatosis. Liver is otherwise poorly visualized in its entirety.
== END 2023-06-19 06:16 | disposition home or self-care (01) ==
LOC: RAD 06:15
PROVIDERS: PCP Family Medicine; Visit Provider Family Medicine
DX: R10.11 Right upper quadrant pain (principal); K76.0 Fatty (change of) liver, not elsewhere classified
CPT/HCPCS: 76705

== ENCOUNTER 2023-07-17 07:19 | Outpatient (CLI) | payer BC, SELFPAY ==
--- NOTE | 2023-07-17 07:36 | MM_ITS ---
WS: [id number] BILATERAL SCREENING DIGITAL TOMOSYNTHESIS MAMMOGRAM WITH CAD HISTORY: SCREEN COMPARISON: 05/23/2022, 07/10/2021 Bilateral CC and MLO views with tomosynthesis and synthetic mammography submitted. Computer aided det ection analyzed. Breast composition: There are scattered areas of fibroglandular density. No suspicious masses, microc alcifications or architectural distortion. Benign bilateral calcifications. IMPRESSION: MM/[place] [id number] BI-RADS: 2-Benign FOLLOW UP: 1 Year Follow-up
== END 2023-07-17 07:20 | disposition home or self-care (01) ==
LOC: RAD 07:19
PROVIDERS: PCP Family Medicine; Visit Provider Family Medicine
DX: Z12.31 Encounter for screening mammogram for malignant neoplasm of breast (principal)
CPT/HCPCS: 77063; 77067

== ENCOUNTER → 2024-02-19 09:08 | Outpatient (BNVA) | payer BC, SELFPAY | PROVIDERS: PCP Family Medicine; Visit Provider Specialist | DX: E11.8 Type 2 diabetes mellitus with unspecified complications (principal) | CPT/HCPCS: 36415; 83036 ==

== ENCOUNTER 2024-03-25 07:27 | Outpatient (CLI) | payer BC, SELFPAY ==
--- NOTE | 2024-03-25 07:32 | MM_ITS ---
WS: [id number] BILATERAL SCREENING DIGITAL TOMOSYNTHESIS MAMMOGRAM WITH CAD HISTORY: SCREENING COMPARISON: 07/17/2023, 05/23/2022 Bilateral CC and MLO views with tomosynthesis and synthetic mammography submitted. Computer aided det ection analyzed. Breast composition: There are scattered areas of fibroglandular density. No suspicious masses, microc alcifications or architectural distortion. Benign calcifications in each breast. No interval change. MM/[place] [id number] IMPRESSION: BI-RADS: 2-Benign FOLLOW UP: 1 Year Follow-up
== END 2024-03-25 07:28 | disposition home or self-care (01) ==
PROVIDERS: PCP Family Medicine; Visit Provider Family Medicine
DX: Z12.31 Encounter for screening mammogram for malignant neoplasm of breast (principal)
CPT/HCPCS: 77063; 77067

== ENCOUNTER 2024-03-29 12:11 | Outpatient (CLI) | payer BC, SELFPAY ==
--- NOTE | 2024-03-29 12:00 | CT_ITS ---
WS: [email or web address] CT CALCIUM SCORE REASON FOR VISIT: WELLNESS EXAMINATION; Coronary artery disease risk assessment COMPARISON: None TECHNIQUE: Noncontrast coronary CT in combination with quantitative analysis performed on a separate workstation were used to determine CACS (Agatston score) TOTAL EXAM DOSE: 139.20 mGy.cm ECG GATING: Prospective SCAN RANGE: Pulmonary artery bifurcation to Inferior aspect of heart COMPLICATIONS: None FINDINGS: Technical Quality/Examination Quality: Good Limitaiton: None OVERALL SCORES Total calcium score: 13 Total volume score: 14 mm3 Percentile: 50th to 75th percentile ARTERY SCORES Left main coronary artery: N/A Left anterior descending artery: 13 Left circumflex artery: N/A Right coronary artery: 0 OTHER FINDINGS: Mediastinum: Normal. Thoracic aorta: Mild aortic calcification Lungs: Normal. Upper Abdomen: Normal. MINIMAL: 1-10 MILD: 11-100 MODERATE: 101-400 SEVERE:>400 CT/CT heart w calcium score [id number] IMPRESSION: Total calcium score 13 compatible with mild coronary artery disease GRADING OF CORONARY ARTERY DISEASE (BASED ON TOTAL CALCIUM SCORE) NO EVIDENCE OF CAD: 0 calcium score
== END 2024-03-29 12:12 | disposition home or self-care (01) ==
LOC: RAD 12:14
PROVIDERS: PCP Family Medicine; Visit Provider Family Medicine
DX: Z13.6 Encounter for screening for cardiovascular disorders (principal)
CPT/HCPCS: 75571

== ENCOUNTER 2025-04-14 08:15 | Outpatient (CLI) | payer OTHER, SELFPAY ==
--- NOTE | 2025-04-14 | MM_ITS ---
WS: [email or web address] SCREENING DIGITAL BREAST TOMOSYNTHESIS MAMMOGRAM WITH CAD HISTORY: ANNUAL SCREENING COMPARISON: 03/25/2024, 07/17/2023, Bilateral CC and MLO with tomosynthesis and synthetic mammography submitted. Computer aided detection analyzed. Breast composition: There are scattered areas of fibroglandular density. Benign scattered calcifications in each breast. There are a few small lymph nodes towards the upper outer quadrant. The upper outer quadrants and axillary tails of each breast have not been included in their entirety. No distortion of either breast. No nipple retraction. MM/MM scr tomosynthesis [id number] IMPRESSION: BI-RADS: 0 - Incomplete: Need additional imaging evaluation. FOLLOW UP: Need Additional Imaging Recommend additional MLO imaging of each breast to include the axillary tails a nd more of the axilla.
== END 2025-04-14 08:16 | disposition home or self-care (01) ==
LOC: RAD 08:15
PROVIDERS: PCP Nurse Practitioner Family; Visit Provider Nurse Practitioner Family
DX: Z12.31 Encounter for screening mammogram for malignant neoplasm of breast (principal); R92.323 Mammographic fibroglandular density, bilateral breasts; R92.1 Mammographic calcification found on diagnostic imaging of breast; R59.9 Enlarged lymph nodes, unspecified
CPT/HCPCS: 77063; 77067

== ENCOUNTER → 2025-05-10 10:37 | Outpatient (BNVA) | payer OTHER, SELFPAY | PROVIDERS: Visit Provider Podiatrist Foot & Ankle Surgery | DX: M79.672 Pain in left foot (principal) | CPT/HCPCS: 73630 ==